=== PATIENT | female | born 1970 | race Hispanic/Latino ===

== ENCOUNTER 2019-04-11 19:25 | Emergency (ER) | payer OTHER ==
[~2019-04-11] VITALS: Ht 157.5 cm; Wt 89.8 kg
[2019-04-11] MEDS ORDERED: NIFEDIPINE 10 MG CAP PO STA (19:28)
--- OUTSIDE RECORDS SUMMARY | 2019-04-11 19:29 | XMS REPORT | CCD ---
Author Author Auto Generated Organization [facility] [place] Address Unknown Phone Unavailable Care Team Providers Care Hop Picker Name Role Phone Khloe Luu CP Allergies, Adverse Reactions, Alerts Substance Reaction Status codeine Active
--- OUTSIDE RECORDS SUMMARY | 2019-04-11 19:29 | XMS REPORT ---
Author Author Sommer Wheatley Organization [employer] Address Unknown Phone Unavailable Care Team Providers Care Command And Control Systems Integrator Name Role Phone Sommer Wheatley CP Unavailable Allergies No Known Allergies Problems Problem Type Condition Code Onset Dates Condition Status Problem Hypothyroidism E03.9 Active Problem Encounter for other screening for malignant neoplasm of breast Z12.39 Active Problem HTN (hypertension) I10 Active Problem Prediabetes R73.09 Active Problem BMI 37.0-37.9, adult Z68.37 Active Problem Fatty liver K76.0 Active Problem Paresthesia of both hands R20.2 Active Problem At high risk for breast cancer Z91.89 Active Problem Surgical menopause E89.40 Active Problem Type 2 diabetes mellitus without complication, without long-term current use of insulin E11.9 Active Assessment Prediabetes R73.09 Active Problem Obesity E66.9 Active Problem HLD (hyperlipidemia) E78.5 Active Medications Medication Code System Code Instructions Start Date End Date Status Dosage OneTouch Ultra Test [facility] 82037798784 - In Vitro use bid Active as directed Results No Known Results Summary Purpose eClinicalWorks Submission
--- OUTSIDE RECORDS SUMMARY | 2019-04-11 19:29 | XMS REPORT ---
Author Author Sommer Wheatley Organization [employer] Address Unknown Phone Unavailable Care Team Providers Care Advertising Campaign Manager Name Role Phone Sommer Wheatley CP Unavailable Allergies No Known Allergies Problems Problem Type Condition Code Onset Dates Condition Status Problem At high risk for breast cancer Z91.89 Active Problem Type 2 diabetes mellitus without complication, without long-term current use of insulin E11.9 Active Problem Paresthesia of both hands R20.2 Active Problem Tension headache G44.209 Active Problem Mixed hyperlipidemia E78.2 Active Problem Sciatica of right side M54.31 Active Problem BMI 37.0-37.9, adult Z68.37 Active Problem Surgical menopause E89.40 Active Problem Fatty liver K76.0 Active Problem Prediabetes R73.09 Active Problem Hypothyroidism E03.9 Active Problem HTN (hypertension) I10 Active Problem HLD (hyperlipidemia) E78.5 Active Problem Obesity E66.9 Active Problem Encounter for other screening for malignant neoplasm of breast Z12.39 Active Medications Medication Code System Code Instructions Start Date End Date Status Dosage Coreg CR [facility] [id number] 20 mg orally Once a day Active 1 capsule Results No Known Results Summary Purpose eClinicalWorks Submission
--- OUTSIDE RECORDS SUMMARY | 2019-04-11 19:29 | XMS REPORT ---
Author Damian Chappell Organization [employer] Address Unknown Phone Unavailable Care Team Providers Care Boat Operator Name Role Phone Damian Ricci CP Unavailable Allergies No Known Allergies Problems Problem Type Condition Code Onset Dates Condition Status Problem Type 2 diabetes mellitus without complication, without long-term current use of insulin E11.9 Active Problem Plantar fasciitis M72.2 Active Medications No Known Medications Results No Known Results Summary Purpose eClinicalWorks Submission
--- OUTSIDE RECORDS SUMMARY | 2019-04-11 19:29 | XMS REPORT ---
Author Author Sommer Wheatley [facility] eClinical[employer] Address Unknown Phone Unavailable Care Team Providers Care Knitting Machine Tender Name Role Phone Sommer Wheatley CP Unavailable Allergies, Adverse Reactions, Alerts Substance Reaction Event Type Codeine Sulfate axiety Drug Allergy AMARA inhibitors cough Non Drug Allergy Problems Problem Type Condition Code Onset Dates Condition Status Assessment HTN (hypertension) I10 Active Problem Hypothyroidism E03.9 Active Problem Obesity E66.9 Active Problem Type 2 diabetes mellitus without complication, without long-term current use of insulin E11.9 Active Problem Paresthesia of both hands R20.2 Active Problem BMI 37.0-37.9, adult Z68.37 Active Problem HLD (hyperlipidemia) E78.5 Active Problem HTN (hypertension) I10 Active Problem At high risk for breast cancer Z91.89 Active Problem Encounter for other screening for malignant neoplasm of breast Z12.39 Active Assessment BMI 37.0-37.9, adult Z68.37 Active Assessment Obesity E66.9 Active Assessment HLD (hyperlipidemia) E78.5 Active Assessment Type 2 diabetes mellitus without complication, without long-term current use of insulin E11.9 Active Medications Medication Code System Code Instructions Start Date End Date Status Dosage Metformin HCl ND 02702224328 500 mg Orally once a day Active 1 tablet with meals Losartan Potassium ND 61906167676 25 MG Orally Once a day Jun 14, 2017 Inactive 1 tablet Aspir-81 ND 83463147159 81 MG Orally Once a day Active 1 tablet OneTouch Ultra Test ND 05889225547 - Active USE DIRECTED EVERY DAY Coreg CR ND 69903032753 20 MG Orally Once a day December 31, 2016 Active 1 capsule with food OneTouch Lancets ND 53258059909 SQ once a day DX: E11.9 November 26, 2016 Active as directed Atorvastatin Calcium ND 56915589358 20 MG Orally Once a day Active 1 tablet Fish Oil ND 30591824187 500 mg Orally ance a day Active 1 capsule Metamucil Fiber Singles NDC 0 58.6 % Orally Three times a day Active 1 packet with 8 ounces of liquid as needed [employer] Ultra System ND 75368489080 w/Device in vitro use qd dx: E11.December 01, 2016 Active as directed Caltrate 600+D ND 05543540296 600-400 MG-UNIT Orally Once a day Active 1 tablet with food OneTouch Test NDC 0 In Vitro once a day DX: E11.November 26, 2016 Active as directed Vital Signs Date/Time: Jun 29, 2017 BMI 37.31 Index Weight 204 lbs Height 62 in Cardiac Monitoring Heart Rate 76 /min Blood Pressure Diastolic 76 mm Hg Blood Pressure Systolic 120 mm Hg Results No Known Results Summary Purpose eClinicalWorks Submission
--- OUTSIDE RECORDS SUMMARY | 2019-04-11 19:29 | XMS REPORT | CCD ---
Author Author Auto Generated Organization [facility] - [place] Address Unknown Phone Unavailable Care Team Providers Care Fisher Name Role Phone Khloe Luu CP Allergies, Adverse Reactions, Alerts Substance Reaction Status codeine Active
--- OUTSIDE RECORDS SUMMARY | 2019-04-11 19:29 | XMS REPORT ---
Author Author Sommer Wheatley [facility] eClinicalWorks Address Unknown Phone Unavailable Care Team Providers Care Anthropology Lecturer Name Role Phone Sommer Wheatley CP Unavailable [...] current use of insulin E11.9 Active Assessment Surgical menopause E89.40 Active Assessment Fatty liver K76.0 Active Assessment Hypothyroidism E03.9 Active Assessment Prediabetes R73.09 Active Assessment HTN (hypertension) I10 Active Problem Obesity E66.9 Active Assessment HLD (hyperlipidemia) E78.5 Active Problem HLD (hyperlipidemia) E78.5 Active Medications Medication Code System Code Instructions Start Date End Date Status Dosage Metformin HCl ND 74363279274 500 mg Orally once a day Active 1 tablet with meals Coreg CR [facility] 17533327856 20 MG Orally Once a day December 31, 2016 Active 1 capsule with food Caltrate 600+D [facility] 54181269877 600-400 MG-UNIT Orally Once a day Active 1 tablet with food Aspir-81 ND 23923934833 81 MG Orally Once a day Active 1 tablet OneTouch Ultra Test [facility] 81077305805 - Active USE DIRECTED EVERY DAY OneTouch Ultra System [facility] 59159353397 w/Device in vitro use qd dx: E11December 01, 2016 Active as directed OneTouch Lancets [facility] 67732864518 SQ once a day DX: E11November 26, 2016 Active as directed OneTouch Test NDC 0 In Vitro once a day DX: E11.9 November 26, 2016 Active as directed Centrum Adults ND 28282698888 - Orally Active not defined Atorvastatin Calcium ND 48645046844 20 MG Orally Once a day Active 1 tablet Vital Signs Date/Time: December 15, 2017 BMI 35.77 Index Weight 195.6 lbs Height 62 in Temperature 98 F Cardiac Monitoring Heart Rate 73 /min Blood Pressure Diastolic 78 mm Hg Blood Pressure Systolic 124 mm Hg Results Name Result Date Reference Range Unit Abnormality Flag BONE DENSITY Summary Purpose eClinicalWorks Submission
--- OUTSIDE RECORDS SUMMARY | 2019-04-11 19:29 | XMS REPORT ---
Author Author Sommer Wheatley Organization [employer]Clinical[employer] Address Unknown Phone Unavailable Care Team Providers Care Receptionist Doctor'S Office Name Role Phone Sommer Wheatley CP Unavailable Allergies No Known Allergies Problems Problem Type Condition Code Onset Dates Condition Status Problem Obesity E66.9 Active Problem HTN (hypertension) I10 Active Problem Hypothyroidism E03.9 Active Problem BMI 37.0-37.9, adult Z68.37 Active Problem Type 2 diabetes mellitus without complication, without long-term current use of insulin E11.9 Active Problem Prediabetes R73.09 Active Problem Encounter for other screening for malignant neoplasm of breast Z12.39 Active Problem HLD (hyperlipidemia) E78.5 Active Problem Paresthesia of both hands R20.2 Active Problem At high risk for breast cancer Z91.89 Active Medications Medication Code System Code Instructions Start Date End Date Status Dosage Cipro [facility] 57998386281 250 MG Orally every 12 hrs Sep 27, 2017 Oct 07, 2017 Active 1 tablet Results No Known Results Summary Purpose eClinicalWorks Submission
--- OUTSIDE RECORDS SUMMARY | 2019-04-11 19:29 | XMS REPORT ---
Author Author Darline Gonzales Organization [employer]ClinicalWorks Address Unknown Phone Unavailable Care Team Providers Care Farm Equipment Engine Mechanic Name Role Phone Darline Gonzales CP Unavailable Allergies, Adverse Reactions, Alerts Substance Reaction Event Type Codeine Sulfate axiety Drug Allergy Problems Problem Type Condition Code Onset Dates Condition Status Assessment HTN (hypertension) I10 Active Problem Obesity E66.9 Active Assessment Hyperpigmented skin lesion L81.9 Active Assessment Cough R05 Active Problem Paresthesia of both hands R20.2 Active Problem At high risk for breast cancer Z91.89 Active Problem Type 2 diabetes mellitus without complication, without long-term current use of insulin E11.9 Active Problem HTN (hypertension) I10 Active Problem Hypothyroidism E03.9 Active Problem Encounter for other screening for malignant neoplasm of breast Z12.39 Active Problem HLD (hyperlipidemia) E78.5 Active Medications Medication Code System Code Instructions Start Date End Date Status Dosage OneTouch Ultra System [facility] 17079398951 w/Device in vitro use qd dx: E11.December 01, 2016 Active as directed Coreg CR ND 76012292317 20 MG Orally Once a day December 31, 2016 Active 1 capsule with food Metamucil Fiber Singles NDC 0 58.6 % Orally Three times a day Active 1 packet with 8 ounces of liquid as needed Metformin HCl ND 95734741788 500 MG Orally once a day Active 1 tablet with meals Atorvastatin Calcium ND 33989047311 20 MG Orally Once a day Active 1 tablet Lisinopril ND 07961148039 5 MG Orally Once a day December 31, 2016 Active 1 tablet OneTouch Lancets ND 25875695312 SQ once a day DX: E11.9 November 26, 2016 Active as directed Caltrate 600+D ND 70046984652 600-400 MG-UNIT Orally Once a day Active 1 tablet with food Aspir-81 ND 69196776150 81 MG Orally Once a day Active 1 tablet OneTouch Ultra Test ND 09712052281 - Active USE DIRECTED EVERY DAY Fish Oil ND 48499916808 500 mg Orally ance a day Active 1 capsule OneTouch Test NDC 0 In Vitro once a day DX: E11.9 November 26, 2016 Active as directed Vital Signs Date/Time: May 31, 2017 BMI 36.76 Index Weight 201 lbs Height 62 in Cardiac Monitoring Heart Rate 83 /min Blood Pressure Diastolic 70 mm Hg Blood Pressure Systolic 120 mm Hg Results No Known Results Summary Purpose eClinicalWorks Submission
--- OUTSIDE RECORDS SUMMARY | 2019-04-11 19:29 | XMS REPORT | CCD ---
Author Author Auto Generated Organization [facility] Address Unknown Phone Unavailable Care Team Providers Care Grinding And Spraying Supervisor Name Role Phone Khloe Luu RP Allergies, Adverse Reactions, Alerts Substance Reaction Status codeine Active
--- OUTSIDE RECORDS SUMMARY | 2019-04-11 19:29 | XMS REPORT ---
Author Author Sommer Wheatley [facility] eClinicalWorks Address Unknown Phone Unavailable Care Team Providers Care Newspaper Managing Editor Name Role Phone Sommer Wheatley CP Unavailable Allergies, Adverse Reactions, Alerts Substance Reaction Event Type Codeine Sulfate axiety Drug Allergy AMARA inhibitors cough Non Drug Allergy Problems Problem Type Condition Code Onset Dates Condition Status Problem Encounter for other screening for malignant neoplasm of breast Z12.39 Active Problem Paresthesia of both hands R20.2 Active Problem At high risk for breast cancer Z91.89 Active Problem Mixed hyperlipidemia E78.2 Active Problem Fatty liver K76.0 Active Problem Sciatica of right side M54.31 Active Problem Surgical menopause E89.40 Active Problem Type 2 diabetes mellitus without complication, without long-term current use of insulin E11.9 Active Problem Prediabetes R73.09 Active Problem BMI 37.0-37.9, adult Z68.37 Active Problem Obesity E66.9 Active Problem Hypothyroidism E03.9 Active Assessment Upper respiratory tract infection, unspecified type J06.9 Active Problem HTN (hypertension) I10 Active Problem HLD (hyperlipidemia) E78.5 Active Medications Medication Code System Code Instructions Start Date End Date Status Dosage Centrum Adults [facility] 09018643247 - Orally Active not defined Atorvastatin Calcium ND 03815765628 20 mg by mouth daily Active 1 tablet OneTouch Lancets ND 82404226198 SQ once a day DX: E11November 26, 2016 Active as directed OneTouch Test NDC 0 In Vitro once a day DX: E11November 26, 2016 Active as directed Bromfed DM ND 55774502985 30-2-10 MG/5ML Orally every 4 hrs prn Sep 06, 2018 Oct 06, 2018 Active 10 ml OneTouch Ultra System ND 70650335907 w/Device in vitro use qd dx: E11.December 01, 2016 Active as directed Aspir-81 ND 31688420688 81 MG Orally Once a day Active 1 tablet Coreg CR ND 15952643473 20 MG Active TAKE ONE CAPSULE BY MOUTH ONCE A DAY WITH FOOD Metformin HCl [facility] 86008783134 500 mg Orally once a day Active 1 tablet Zithromax Z-Zechariah [facility] 12901433449 250 MG Orally Once a day Sep 06, 2018 Sep 11, 2018 Active 2 tablets on the first day, then 1 tablet daily for 4 days Caltrate 600+D [facility] 68267314234 600-400 MG-UNIT Orally Once a day Active 1 tablet with food [employer] Ultra Test [facility] 32898308553 - In Vitro use bid Active as directed Vital Signs Date/Time: Sep 06, 2018 BMI 35.66 Index Weight 195 lbs Height 62 in Temperature 98.1 F Cardiac Monitoring Heart Rate 84 /min Blood Pressure Diastolic 84 mm Hg Blood Pressure Systolic 130 mm Hg Results No Known Results Summary Purpose eClinicalWorks Submission
--- OUTSIDE RECORDS SUMMARY | 2019-04-11 19:29 | XMS REPORT ---
Author Author Sommer Wheatley [facility] eClinicalWorks Address Unknown Phone Unavailable Care Team Providers Care Valve Steamer Name Role Phone Sommer Wheatley CP Unavailable Allergies, Adverse Reactions, Alerts Substance Reaction Event Type Codeine Sulfate axiety Drug Allergy AMARA inhibitors cough Non Drug Allergy Problems Problem Type Condition Code Onset Dates Condition Status Problem Obesity E66.9 Active Problem HTN (hypertension) I10 Active Problem Hypothyroidism E03.9 Active Assessment Right upper quadrant abdominal pain R10.11 Active Problem BMI 37.0-37.9, adult Z68.37 Active [...] Start Date End Date Status Dosage OneTouch Test NDC 0 In Vitro once a day DX: November 26, 2016 Active as directed OneTouch Lancets ND 62987304845 SQ once a day DX: November 26, 2016 Active as directed OneTouch Ultra Test [facility] 18061650989 - Active USE DIRECTED EVERY DAY Coreg CR ND 72938891193 20 MG Orally Once a day December 31, 2016 Active 1 capsule with food OneTouch Ultra System [facility] 25588097042 w/Device in vitro use qd dx: December 01, 2016 Active as directed Atorvastatin Calcium ND 83749800396 20 MG Orally Once a day Active 1 tablet Tamiflu ND 62501800899 75 mg Orally daily Aug 19, 2017 Active 1 capsule Metformin HCl ND 74945726379 500 mg Orally once a day Active 1 tablet with meals Caltrate 600+D ND 12458522700 600-400 MG-UNIT Orally Once a day Active 1 tablet with food Triamcinolone Acetonide [facility] 37348789948 0.1 % External Active APPLY TO AFFECTED AREA TWICE A DAY FOR 7 DAYS Vital Signs Date/Time: Sep 21, 2017 BMI 35.84 Index Weight 196 lbs Height 62 in Cardiac Monitoring Heart Rate 80 /min Blood Pressure Diastolic 80 mm Hg Blood Pressure Systolic 120 mm Hg Results No Known Results Summary Purpose eClinicalWorks Submission
--- OUTSIDE RECORDS SUMMARY | 2019-04-11 19:29 | XMS REPORT ---
Author Darline Goldman [facility] eClinicalWorks Address Unknown Phone Unavailable Care Team Providers Care Education Teacher Name Role Phone Darline Gonzales CP Unavailable [...] Active Problem BMI 37.0-37.9, adult Z68.37 Active Assessment Acute right ankle pain M25.571 Active Assessment Sciatica of right side M54.31 Active Problem Obesity E66.9 Active Problem Hypothyroidism E03.9 Active Assessment HTN (hypertension) I10 Active Problem HTN (hypertension) I10 Active Problem HLD (hyperlipidemia) E78.5 Active Medications Medication Code System Code Instructions Start Date End Date Status Dosage OneTouch Ultra Test ND 35353573929 - In Vitro use bid Active as directed Aspir-81 ND 55116642223 81 MG Orally Once a day Active 1 tablet OneTouch Test NDC 0 In Vitro once a day DX: E11November 26, 2016 Active as directed OneTouch Lancets ND 13060693162 SQ once a day DX: November 26, 2016 Active as directed Caltrate 600+D ND 73609163740 600-400 MG-UNIT Orally Once a day Active 1 tablet with food Atorvastatin Calcium ND 73816812223 20 mg by mouth daily Active 1 tablet Naproxen ND 45115330098 375 MG Orally every 12 hrs PRN Aug 03, 2018 Aug 10, 2018 Active 1 tablet with food or milk as needed Coreg CR NDC 86710283429 20 MG Active TAKE ONE CAPSULE BY MOUTH ONCE A DAY WITH FOOD Lisinopril [facility] 65211164269 5 MG Orally Once a day Active 1 tablet Metformin HCl [facility] 86523444549 500 mg Orally once a day Active 1 tablet Centrum Adults [facility] 71490259858 - Orally Active not defined [employer] Ultra System [facility] 84773115989 w/Device in vitro use qd dx: E11.9 December 01, 2016 Active as directed Vital Signs Date/Time: Aug 03, 2018 BMI 35.66 Index Weight 195 lbs Height 62 in Cardiac Monitoring Heart Rate 69 /min Blood Pressure Diastolic 92 mm Hg Blood Pressure Systolic 130 mm Hg Results No Known Results Summary Purpose eClinicalWorks Submission
--- OUTSIDE RECORDS SUMMARY | 2019-04-11 19:29 | XMS REPORT ---
Author Author Sommer Wheatley [facility] eClinicalWorks Address Unknown Phone Unavailable Care Team Providers Care Cash Person Name Role Phone Sommer Wheatley CP Unavailable Allergies, Adverse Reactions, Alerts Substance Reaction Event Type Codeine Sulfate axiety Drug Allergy Problems Problem Type Condition Code Onset Dates Condition Status Assessment Encounter for screening mammogram for malignant neoplasm of breast Z12.31 Active Problem Obesity E66.9 Active Assessment Encntr for general adult medical exam w/o abnormal findings Z00.00 Active Problem Paresthesia of both hands R20.2 Active Problem HTN (hypertension) I10 Active Problem Type 2 diabetes mellitus without complication, without long-term current use of insulin E11.9 Active Problem Encounter for other screening for malignant neoplasm of breast Z12.39 Active Problem At high risk for breast cancer Z91.89 Active Problem Hypothyroidism E03.9 Active Problem HLD (hyperlipidemia) E78.5 Active Assessment HTN (hypertension) I10 Active Assessment Hypothyroidism E03.9 Active Assessment Upper respiratory tract infection, unspecified type J06.9 Active Assessment HLD (hyperlipidemia) E78.5 Active Assessment Type 2 diabetes mellitus without complication, without long-term current use of insulin E11.9 Active Assessment Encounter for screening colonoscopy Z12.11 Active Medications Medication Code System Code Instructions Start Date End Date Status Dosage Caltrate 600+D [facility] [address]-09 600-400 MG-UNIT Orally Once a day Active 1 tablet with food Aspir-81 [facility] [address]-55 81 MG Orally Once a day Active 1 tablet Atorvastatin Calcium [facility] [address]-75 20 MG Orally Once a day Active 1 tablet OneTouch Test NDC 0 In Vitro once a day DX: November 26, 2016 Active as directed Metamucil Fiber Singles NDC 0 58.6 % Orally Three times a day Active 1 packet with 8 ounces of liquid as needed OneTouch Lancets [facility] [address]-12 SQ once a day DX: November 26, 2016 Active as directed OneTouch Ultra System [facility] [address]-46 w/Device in vitro use qd dx: E11.9 December 01, 2016 Active as directed Fish Oil [facility] [address]-08 500 mg Orally ance a day Active 1 capsule Coreg CR [facility] [address]-69 20 MG Orally Once a day December 31, 2016 Active 1 capsule with food Bromfed DM [facility] [address]-26 30-2-10 MG/5ML Orally every 4 hrs prn March 11, 2017 May 10, 2017 Active 10 ml Metformin HCl [facility] [address]-22 500 MG Orally once a day November 26, 2016 Active 1 tablet with meals Zithromax Z-Zechariah [facility] [address]-57 250 MG Orally Once a day March 11, 2017 March 16, 2017 Active 2 tablets on the first day, then 1 tablet daily for 4 days Lisinopril [facility] [address]-70 5 MG Orally Once a day December 31, 2016 Active 1 tablet Vital Signs Date/Time: March 11, 2017 BMI 37.13 Index Weight 203 lbs Height 62 in Cardiac Monitoring Heart Rate 85 /min Blood Pressure Diastolic 80 mm Hg Blood Pressure Systolic 112 mm Hg Results No Known Results Summary Purpose eClinicalWorks Submission
--- OUTSIDE RECORDS SUMMARY | 2019-04-11 19:29 | XMS REPORT | Continuity of Care Document ---
Author Author [employer] Organization [employer] Address Unknown Phone Unavailable Care Team Providers Care Call Center Trainer Name Role Phone [employer] Unavailable Unavailable Problems Problem Status Onset Date Classification Date Reported Comments Source 915.13 Active 09/08/2012 [facility] ROUTINE SCREENING Active 07/04/2012 [facility] Plantar fasciitis Active Problem 09/21/2017 [facility] HTN Active Problem 04/08/2019 [facility] Obesity Active Problem 04/08/2019 [facility] Hyperpigmented skin lesion Active Diagnosis 06/01/2017 [facility] Cough Active Diagnosis 06/16/2017 [facility] Paresthesia of both hands Active Problem 04/08/2019 [facility] At high risk for breast cancer Active Problem 04/08/2019 [facility] Type 2 diabetes mellitus without complication, without long-term current use of insulin Active Problem 04/08/2019 [facility] Hypothyroidism Active Problem 04/08/2019 [facility] HLD Active Problem 04/08/2019 [facility] Right upper quadrant abdominal pain Active Diagnosis 09/25/2017 [facility] BMI 37.0-37.9, adult Active Problem 04/08/2019 [facility] Prediabetes Active Problem 04/08/2019 [facility] Adverse effect of avwhgklofpy-vugglkvtlt-kjcdmf inhibitors, initial encounter Active Diagnosis 06/16/2017 [facility] Encounter for screening mammogram for malignant neoplasm of breast Active Diagnosis 05/09/2018 [facility] Encntr for general adult medical exam w/o abnormal findings Active Diagnosis 05/09/2018 [facility] Upper respiratory tract infection, unspecified type Active Diagnosis 09/14/2018 [facility] Encounter for screening colonoscopy Active Diagnosis 03/15/2017 [facility] Fatty liver Active Problem 04/08/2019 [facility] Surgical menopause Active Problem 04/08/2019 [facility] Pain of right heel Active Diagnosis 09/03/2017 [facility] Flu-like symptoms Active Diagnosis 09/03/2017 [facility] RUQ pain Active Diagnosis 10/07/2017 [facility] Acute cystitis without hematuria Active Diagnosis 10/07/2017 [facility] Mixed hyperlipidemia Active Problem 04/08/2019 [facility] Prediabetes Active Diagnosis 05/25/2018 [facility] Sciatica of right side Active Problem 04/08/2019 [facility] Acute right ankle pain Active Diagnosis 08/05/2018 [facility] Cervical paraspinal muscle spasm Active Diagnosis 06/08/2018 [facility] Wheezing Active Diagnosis 06/08/2018 [facility] Tension headache Active Problem 04/08/2019 [facility] Medications Medication Details Route Status Patient Instructions Ordering Provider Order Date Source Bromfed DM 10 ml Orally Active 30-2-10 MG/5ML Orally every 4 hrs prn [facility] 09/06/2018 [facility] Zithromax Z-Zechariah 2 tablets on the first day, then 1 tablet daily for 4 days Orally Active 250 MG Orally Once a day [facility] 09/06/2018 [facility] Naproxen 1 tablet with food or milk as needed Orally Active 375 MG Orally every 12 hrs PRN [facility] 08/03/2018 [facility] Meloxicam -2 tablets Orally Active 7.5 MG Orally Once a day [facility] 06/02/2018 [facility] Flexeril 1 tablet as needed Orally Active 10 mg Orally three times a day (tid) as needed (prn) [facility] 06/02/2018 [facility] Cipro 1 tablet Orally Active 250 MG Orally every 12 hrs [facility] 09/28/2017 [facility] Cipro 1 tablet Orally Active 250 MG Orally every 12 hrs [facility] 09/27/2017 [facility] Tamiflu 1 capsule Orally Active 75 mg Orally daily [facility] 08/19/2017 [facility] Losartan Potassium 1 tablet Orally Active 25 MG Orally Once a day [facility] 06/14/2017 [facility] Bromfed DM 10 ml Orally Active 30-2-10 MG/5ML Orally every 4 hrs prn [facility] 03/11/2017 [facility] Zithromax Z-Zechariah 2 tablets on the first day, then 1 tablet daily for 4 days Orally Active 250 MG Orally Once a day [facility] 03/11/2017 [facility] Coreg CR 1 capsule with food Orally Active 20 MG Orally Once a day [facility] 12/31/2016 [facility] Lisinopril 1 tablet Orally Active 5 MG Orally Once a day [facility] 12/31/2016 [facility] Coreg CR 1 capsule with food Orally Active 20 MG Orally Once a day [facility] 12/31/2016 [facility] Lisinopril 1 tablet Orally Active 5 MG Orally Once a day [facility] 12/31/2016 [facility] OneTouch Ultra System as directed in vitro Active w/Device in vitro use qd dx: E11.9 [facility] 12/01/2016 [facility] OneTouch Ultra System as directed in vitro Active w/Device in vitro use qd dx: E11.9 [facility] 12/01/2016 [facility] OneTouch Lancets as directed SQ Active SQ once a day DX: E11.9 [facility] 11/26/2016 [facility] OneTouch Test as directed In Vitro Active In Vitro once a day DX: E11.9 [facility] 11/26/2016 [facility] OneTouch Lancets as directed SQ Active SQ once a day DX: E11.9 [facility] 11/26/2016 [facility] Metformin HCl 1 tablet with meals Orally Active 500 MG Orally once a day [facility] 11/26/2016 [facility] One Touch/One Touch II Starter as directed In Vitro Active In Vitro as directed DX: E11.9 [facility] 11/26/2016 [facility] Coreg CR 1 capsule with food Orally Active 40 MG Orally Once a day [facility] 11/26/2016 [facility] Metamucil Fiber Singles 1 packet with 8 ounces of liquid as needed Orally Active 58.6 % Orally Three times a day [facility] Metformin HCl 1 tablet with meals Orally Active 500 MG Orally once a day [facility] Atorvastatin Calcium 1 tablet Orally Active 20 MG Orally Once a day Reji Espinosa [facility] Caltrate 600+D 1 tablet with food Orally Active 600-400 MG-UNIT Orally Once a day Reji Espinosa [facility] Aspir-81 1 tablet Orally Active 81 MG Orally Once a day Reji Espinosa [facility] OneTouch Ultra Test as directed In Vitro Active - In Vitro use bid Reji Espinosa [facility] Fish Oil 1 capsule Orally Active 500 mg Orally ance a day Reji Espinosa [facility] Metformin HCl 1 tablet Orally Active 500 mg Orally once a day Reji Espinosa [facility] Triamcinolone Acetonide APPLY TO AFFECTED AREA TWICE A DAY FOR 7 DAYS External Active 0.1 % External Reji Espinosa [facility] Caltrate 600+D 1 tablet with food Orally Active 600-400 MG-UNIT Orally Once a day Reji Espinosa [facility] Aspir-81 1 tablet Orally Active 81 MG Orally Once a day Reji Espinosa [facility] Atorvastatin Calcium 1 tablet Orally Active 20 MG Orally Once a day Reji Espinosa [facility] Fish Oil 1 capsule Orally Active 500 mg Orally ance a day Reji Espinosa [facility] Centrum Adults not defined Orally Active - Orally Reji Espinosa [facility] Invokana 1 tablet Orally No Longer Active 300 MG Orally Once a day Reji Espinosa [facility] Fiber not defined Orally Active Orally Juan [facility] Coreg CR 1 capsule with food Orally Active 20 MG Orally Once a day [facility] Lisinopril 1 tablet Orally Active 5 MG Orally Once a day [facility] Atorvastatin Calcium 1 tablet by mouth Active 20 mg by mouth daily Reji Espinosa [facility] Coreg CR 1 capsule orally Active 20 mg orally Once a day [facility] Allergies, Adverse Reactions, Alerts Substance Category Reaction Severity Reaction type Status Date Reported Comments Source Codeine Sulfate Adverse Reaction axiety Adverse Reaction Active 11/03/2018 [facility] AMARA inhibitors Adverse Reaction cough Adverse Reaction Active 11/03/2018 [facility] codeine drug allergy Allergy Active [facility] Immunizations No Data Provided for This Section Results No Data Provided for This Section Pathology Reports No Data Provided for This Section Diagnostic Reports No Data Provided for This Section Consultation Notes No Data Provided for This Section Discharge Summaries No Data Provided for This Section History and Physicals No Data Provided for This Section Vital Signs Vital Sign Value Date Comments Source Weight 193 11/03/2018 [facility] Height 62 11/03/2018 [facility] Heart Rate 65 11/03/2018 [facility] Diastolic (mm Hg) 66 11/03/2018 [facility] Systolic (mm Hg) 120 11/03/2018 [facility] Weight 195 09/06/2018 [facility] Height 62 09/06/2018 [facility] Temperature Oral (F) 98.1 F 09/06/2018 [facility] Heart Rate 84 09/06/2018 [facility] Diastolic (mm Hg) 84 09/06/2018 [facility] Systolic (mm Hg) 130 09/06/2018 [facility] Weight 195 08/03/2018 [facility] Height 62 08/03/2018 [facility] Heart Rate 69 08/03/2018 [facility] Diastolic (mm Hg) 92 08/03/2018 [facility] Systolic (mm Hg) 130 08/03/2018 [facility] Weight 197 06/02/2018 [facility] Height 62 06/02/2018 [facility] Heart Rate 68 06/02/2018 [facility] Diastolic (mm Hg) 80 06/02/2018 [facility] Systolic (mm Hg) 124 06/02/2018 [facility] Weight 199 05/19/2018 [facility] Height 62 05/19/2018 [facility] Heart Rate 76 05/19/2018 [facility] Diastolic (mm Hg) 82 05/19/2018 [facility] Systolic (mm Hg) 144 05/19/2018 [facility] Weight 198 05/05/2018 [facility] Height 62 05/05/2018 [facility] Heart Rate 74 05/05/2018 [facility] Diastolic (mm Hg) 76 05/05/2018 [facility] Systolic (mm Hg) 130 05/05/2018 [facility] Weight 195.6 12/15/2017 [facility] Height 62 12/15/2017 [facility] Temperature Oral (F) 98 F 12/15/2017 [facility] Heart Rate 73 12/15/2017 [facility] Diastolic (mm Hg) 78 12/15/2017 [facility] Systolic (mm Hg) 124 12/15/2017 [facility] Weight 199 09/28/2017 [facility] Height 62 09/28/2017 [facility] Heart Rate 80 09/28/2017 [facility] Diastolic (mm Hg) 80 09/28/2017 [facility] Systolic (mm Hg) 140 09/28/2017 [facility] Weight 196 09/21/2017 [facility] Height 62 09/21/2017 [facility] Heart Rate 80 09/21/2017 [facility] Diastolic (mm Hg) 80 09/21/2017 [facility] Systolic (mm Hg) 120 09/21/2017 [facility] Weight 201 08/19/2017 [facility] Height 62 08/19/2017 [facility] Heart Rate 88 08/19/2017 [facility] Diastolic (mm Hg) 62 08/19/2017 [facility] Systolic (mm Hg) 122 08/19/2017 [facility] Weight 204 06/29/2017 [facility] Height 62 06/29/2017 [facility] Heart Rate 76 06/29/2017 [facility] Diastolic (mm Hg) 76 06/29/2017 [facility] Systolic (mm Hg) 120 06/29/2017 [facility] Weight 201 06/14/2017 [facility] Height 62 06/14/2017 [facility] Heart Rate 76 06/14/2017 [facility] Diastolic (mm Hg) 80 06/14/2017 [facility] Systolic (mm Hg) 130 06/14/2017 [facility] Weight 201 05/31/2017 [facility] Height 62 05/31/2017 [facility] Heart Rate 83 05/31/2017 [facility] Diastolic (mm Hg) 70 05/31/2017 [facility] Systolic (mm Hg) 120 05/31/2017 [facility] Weight 203 03/11/2017 [facility] Height 62 03/11/2017 [facility] Heart Rate 85 03/11/2017 [facility] Diastolic (mm Hg) 80 03/11/2017 [facility] Systolic (mm Hg) 112 03/11/2017 [facility] Weight 203 11/26/2016 [facility] Height 62 11/26/2016 [facility] Heart Rate 78 11/26/2016 [facility] Diastolic (mm Hg) 92 11/26/2016 [facility] Systolic (mm Hg) 138 11/26/2016 [facility] Weight 200 11/19/2016 [facility] Height 62 11/19/2016 [facility] Heart Rate 71 11/19/2016 [facility] Diastolic (mm Hg) 98 11/19/2016 [facility] Systolic (mm Hg) 162 11/19/2016 [facility] Weight 193 08/14/2016 [facility] Height 62 08/14/2016 [facility] Heart Rate 79 08/14/2016 [facility] Diastolic (mm Hg) 90 08/14/2016 [facility] Systolic (mm Hg) 150 08/14/2016 [facility] Weight 185 04/23/2016 [facility] Height 62 04/23/2016 [facility] Heart Rate 76 04/23/2016 [facility] Diastolic (mm Hg) 85 04/23/2016 [facility] Systolic (mm Hg) 119 04/23/2016 [facility] Weight 185 01/21/2016 [facility] Height 62 01/21/2016 [facility] Heart Rate 75 01/21/2016 [facility] Diastolic (mm Hg) 82 01/21/2016 [facility] Systolic (mm Hg) 110 01/21/2016 [facility] Encounters Location Location Details Encounter Type Encounter Number Reason For Visit Attending Provider ADM Date DC Date Status Source [facility] [id number] 793.80 BRADBRODY JEAN BAPTISTERUPERTO 09/19/2012 Active [facility] Lab results [id number] 01/21/2016 01/21/2016 [facility] Lab results [id number] 01/21/2016 01/21/2016 [facility] Lab results [id number] 01/21/2016 01/21/2016 [facility] 3 MONTH FOLLOW UP [id number] 04/23/2016 04/23/2016 [facility] 3 MONTH FOLLOW UP [id number] 04/23/2016 04/23/2016 [facility] 3 MONTH FOLLOW UP [id number] 08/14/2016 08/14/2016 [facility] [id number] ROUTINE SCREENING BRAD [place]RO[place] Cancel [facility] Procedures No Data Provided for This Section Assessment and Plan No Data Provided for This Section Plan of Care No Data Provided for This Section Social History Social History Date Source Social History ElementQualifiersDate Reported Ethnicity . Status , Is afghan your primary language? Yes Aug 14, 2016 children . 2 Aug 14, 2016 Tobacco Use: . Are you a: never smoker Aug 14, 2016 Marital Status: . Albino Cabrialez Aug 14, 2016 Do you drink alcohol? . Status: Yes, Type: Wine, How often? Socially Aug 14, 2016 Occupation: . Stay at home parent Aug 14, 2016 08/14/2016 [facility] Family History No Data Provided for This Section Advance Directives No Data Provided for This Section Functional Status No Data Provided for This Section
--- OUTSIDE RECORDS SUMMARY | 2019-04-11 19:29 | XMS REPORT ---
Author Author Sommer Wheatley [facility] [employer] Address Unknown Phone Unavailable Care Team Providers Care Traffic Ii Manager Name Role Phone Sommer Wheatley CP Unavailable Allergies, Adverse Reactions, Alerts Substance Reaction Event Type Codeine Sulfate axiety Drug Allergy AMARA inhibitors cough Non Drug Allergy Problems Problem Type Condition Code Onset Dates Condition Status Assessment Pain of right heel M79.671 Active Problem Hypothyroidism E03.9 Active Problem Obesity E66.9 Active Assessment Flu-like symptoms R68.89 Active Problem Type 2 diabetes mellitus without [...] Instructions Start Date End Date Status Dosage Atorvastatin Calcium ND 07368596514 20 MG Orally Once a day Active 1 tablet Tamiflu ND 46590886296 75 mg Orally daily Aug 19, 2017 Active 1 capsule Metformin HCl ND 10644090819 500 mg Orally once a day Active 1 tablet with meals MusicshakeTouch Ultra System [facility] 54466220737 w/Device in vitro use qd dx: December 01, 2016 Active as directed OneTouch Ultra Test ND 85095927146 - Active USE DIRECTED EVERY DAY OneTouch Lancets ND 94054544081 SQ once a day DX: November 26, 2016 Active as directed OneTouch Test NDC 0 In Vitro once a day DX: November 26, 2016 Active as directed Caltrate 600+D ND 37169417186 600-400 MG-UNIT Orally Once a day Active 1 tablet with food Coreg CR ND 28105955717 20 MG Orally Once a day December 31, 2016 Active 1 capsule with food Vital Signs Date/Time: Aug 19, 2017 BMI 36.76 Index Weight 201 lbs Height 62 in Cardiac Monitoring Heart Rate 88 /min Blood Pressure Diastolic 62 mm Hg Blood Pressure Systolic 122 mm Hg Results No Known Results Summary Purpose [employer] Submission
--- OUTSIDE RECORDS SUMMARY | 2019-04-11 19:29 | XMS REPORT ---
Author Author Sommer Wheatley [facility] [employer] Address Unknown Phone Unavailable Care Team Providers Care Field Superintendent Name Role Phone Sommer Wheatley CP Unavailable Allergies, Adverse Reactions, Alerts Substance Reaction Event Type Codeine Sulfate axiety Drug Allergy AMARA inhibitors cough Non Drug Allergy Problems Problem Type Condition Code Onset Dates Condition Status Problem HLD (hyperlipidemia) E78.5 Active Problem HTN (hypertension) I10 Active Problem Hypothyroidism E03.9 Active Problem Prediabetes R73.09 Active Problem BMI 37.0-37.9, adult Z68.37 Active Problem Fatty liver K76.0 Active Problem At high risk for breast cancer Z91.89 Active Problem Encounter for other screening for malignant neoplasm of breast Z12.39 Active Problem Type 2 diabetes mellitus without complication, without long-term current use of insulin E11.9 Active Problem Paresthesia of both hands R20.2 Active Assessment RUQ pain R10.11 Active Assessment Type 2 diabetes mellitus without complication, without long-term current use of insulin E11.9 Active Assessment Hypothyroidism E03.9 Active Assessment Acute cystitis without hematuria N30.00 Active Assessment HLD (hyperlipidemia) E78.5 Active Assessment Fatty liver K76.0 Active Problem Obesity E66.9 Active Medications Medication Code System Code Instructions Start Date End Date Status Dosage OneTouch Ultra Test [facility] 49763209810 - Active USE DIRECTED EVERY DAY OneTouch Ultra System [facility] 29298301133 w/Device in vitro use qd dx: E11.December 01, 2016 Active as directed Cipro ND 76891885297 250 MG Orally every 12 hrs Sep 28, 2017 Oct 08, 2017 Active 1 tablet OneTouch Lancets ND 83140250546 SQ once a day DX: E11.November 26, 2016 Active as directed Metformin HCl ND 79561104412 500 mg Orally once a day Active 1 tablet with meals Coreg CR ND 45907271067 20 MG Orally Once a day December 31, 2016 Active 1 capsule with food Cipro ND 12300847433 250 MG Orally every 12 hrs Sep 27, 2017 Oct 07, 2017 Active 1 tablet OneTouch Test NDC 0 In Vitro once a day DX: E11.9 November 26, 2016 Active as directed Caltrate 600+D ND 58147254199 600-400 MG-UNIT Orally Once a day Active 1 tablet with food Atorvastatin Calcium ND 29994861477 20 MG Orally Once a day Active 1 tablet Triamcinolone Acetonide [facility] 67732618181 0.1 % External Active APPLY TO AFFECTED AREA TWICE A DAY FOR 7 DAYS Vital Signs Date/Time: Sep 28, 2017 BMI 36.39 Index Weight 199 lbs Height 62 in Cardiac Monitoring Heart Rate 80 /min Blood Pressure Diastolic 80 mm Hg Blood Pressure Systolic 140 mm Hg Results No Known Results Summary Purpose [employer] Submission
--- OUTSIDE RECORDS SUMMARY | 2019-04-11 19:29 | XMS REPORT ---
Author Author Sommer Wheatley Organization eClinicalWorks Address Unknown Phone Unavailable Care Team Providers Care Student Services Dean Name Role Phone Sommer Wheatley CP Unavailable [...] Start Date End Date Status Dosage OneTouch Lancets [facility] 71126797668 SQ once a day DX: November 26, 2016 Active as directed Caltrate 600+D ND 04745874093 600-400 MG-UNIT Orally Once a day Active 1 tablet with food OneTouch Ultra System [facility] 98520385901 w/Device in vitro use qd dx: December 01, 2016 Active as directed OneTouch Test NDC 0 In Vitro once a day DX: November 26, 2016 Active as directed Tamiflu ND 56413349805 75 mg Orally daily Aug 19, 2017 Active 1 capsule Metformin HCl ND 91361350399 500 mg Orally once a day Active 1 tablet with meals Coreg CR ND 11373745206 20 MG Orally Once a day December 31, 2016 Active 1 capsule with food OneTouch Ultra Test [facility] 38661255655 - Active USE DIRECTED EVERY DAY Atorvastatin Calcium ND 95659328000 20 MG Orally Once a day Active 1 tablet Results No Known Results Summary Purpose eClinicalWorks Submission
--- OUTSIDE RECORDS SUMMARY | 2019-04-11 19:29 | XMS REPORT ---
Author Author Darline Gonzales [facility] eClinicalWorks Address Unknown Phone Unavailable Care Team Providers Care Russian Language Professor Name Role Phone Darline Gonzales CP Unavailable Allergies, Adverse Reactions, Alerts Substance Reaction Event Type Codeine Sulfate axiety Drug Allergy AMARA inhibitors cough Non Drug Allergy Problems Problem Type Condition Code Onset Dates Condition Status Assessment Type 2 diabetes mellitus without complication, without long-term current use of insulin E11.9 Active Problem Obesity E66.9 Active Assessment HTN (hypertension) I10 Active Assessment Cough R05 Active Assessment Adverse effect of hziluwqgzqw-qltaaimlqu-uygejz inhibitors, initial encounter T46.4X5A Active Problem Paresthesia of both hands R20.2 [...] Date End Date Status Dosage OneTouch Lancets ND 12123479722 SQ once a day DX: November 26, 2016 Active as directed Atorvastatin Calcium ND 63113463580 20 MG Orally Once a day Active 1 tablet Metformin HCl ND 65347843280 500 mg Orally once a day Active 1 tablet with meals Metamucil Fiber Singles NDC 0 58.6 % Orally Three times a day Active 1 packet with 8 ounces of liquid as needed OneTouch Test NDC 0 In Vitro once a day DX: November 26, 2016 Active as directed Coreg CR ND 28284428754 20 MG Orally Once a day December 31, 2016 Active 1 capsule with food Fish Oil ND 28402922379 500 mg Orally ance a day Active 1 capsule Aspir-81 ND 73449350981 81 MG Orally Once a day Active 1 tablet OneTouch Ultra Test [facility] 81335898492 - Active USE DIRECTED EVERY DAY Lisinopril ND 04166409084 5 MG Orally Once a day December 31, 2016 Inactive 1 tablet Caltrate 600+D ND 99333342351 600-400 MG-UNIT Orally Once a day Active 1 tablet with food IMT System [facility] 53753925596 w/Device in vitro use qd dx: E11.9 December 01, 2016 Active as directed Losartan Potassium ND 02894402104 25 MG Orally Once a day Jun 14, 2017 Active 1 tablet Vital Signs Date/Time: Jun 14, 2017 BMI 36.76 Index Weight 201 lbs Height 62 in Cardiac Monitoring Heart Rate 76 /min Blood Pressure Diastolic 80 mm Hg Blood Pressure Systolic 130 mm Hg Results Name Result Date Reference Range Unit Abnormality Flag MONOFILAMENT FOOT EXAMINATION PERFORMED Summary Purpose eClinicalWorks Submission
--- OUTSIDE RECORDS SUMMARY | 2019-04-11 19:30 | XMS REPORT ---
Author Author Sommer Wheatley [facility] eClinicalWorks Address Unknown Phone Unavailable Care Team Providers Care Marble Polisher Hand Name Role Phone Sommer Wheatley CP Unavailable Allergies, Adverse Reactions, Alerts Substance Reaction Event Type Codeine Sulfate axiety Drug Allergy Encounters Encounter Location Date Lab results [facility] January 21, 2016 3 MONTH FOLLOW UP [facility] Apr 23, 2016 3 MONTH FOLLOW UP [facility] Aug 14, 2016 Problems Problem Type Condition ICD-9 Code Onset Dates Condition Status Assessment Hypothyroidism E03.9 Active Problem Obesity E66.9 Active Assessment HLD (hyperlipidemia) E78.5 Active Problem HTN (hypertension) I10 Active Problem Prediabetes R73.09 Active Problem Paresthesia of both hands R20.2 Active Problem Encounter for other screening for malignant neoplasm of breast Z12.39 Active Problem At high risk for breast cancer Z91.89 Active Problem Hypothyroidism E03.9 Active Problem HLD (hyperlipidemia) E78.5 Active Assessment Paresthesia of both hands R20.2 Active Assessment Prediabetes R73.09 Active Assessment HTN (hypertension) I10 Active Medications Medication Code System Code Instructions Start Date End Date Status Dosage Aspir-81 [facility] [address]-22 81 MG Orally Once a day Active 1 tablet [facility] [address]-43 500 mg Orally ance a day Active 1 capsule Atorvastatin Calcium [facility] [address]-78 20 MG Orally Once a day Active 1 tablet Fiber [facility] [address]-46 Orally Active Unknown Coreg CR [facility] [address]-27 20 MG Orally Once a day Active 1 capsule with food Caltrate 600+D [facility] [address]-36 600-400 MG-UNIT Orally Once a day Active 1 tablet with food Social History Social History Element Qualifiers Date Reported Ethnicity . Status , Is finnish your primary language? Yes Aug 14, 2016 children . 2 Aug 14, 2016 Tobacco Use: . Are you a: never smoker Aug 14, 2016 Marital Status: . [place] Aug 14, 2016 Do you drink alcohol? . Status: Yes, Type: Wine, How often? 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
--- OUTSIDE RECORDS SUMMARY | 2019-04-11 19:30 | XMS REPORT ---
Author Author Sommer Wheatley [facility] eClinicalWorks Address Unknown Phone Unavailable Care Team Providers Care Vp Biology Name Role Phone Sommer Wheatley CP Unavailable Allergies, Adverse Reactions, Alerts Substance Reaction Event Type Codeine Sulfate axiety Drug Allergy AMARA inhibitors cough Non Drug Allergy Problems Problem Type Condition Code Onset Dates Condition Status Problem Encounter for other screening for malignant neoplasm of breast Z12.39 Active Problem At high risk for breast cancer Z91.89 Active Problem HLD (hyperlipidemia) E78.5 Active Problem Fatty liver K76.0 Active Problem Prediabetes R73.09 Active Problem Mixed hyperlipidemia E78.2 Active Problem Type 2 diabetes mellitus without complication, without long-term current use of insulin E11.9 Active Problem Paresthesia of both hands R20.2 Active Problem BMI 37.0-37.9, adult Z68.37 Active Problem Surgical menopause E89.40 Active Assessment Mixed hyperlipidemia E78.2 Active Problem Obesity E66.9 Active Problem Hypothyroidism E03.9 Active Assessment Prediabetes R73.03 Active Problem HTN (hypertension) I10 Active Medications Medication Code System Code Instructions Start Date End Date Status Dosage Aspir-81 [facility] 56252699805 81 MG Orally Once a day Active 1 tablet OneTouch Ultra Test [facility] 33919526605 - In Vitro use bid Active as directed OneTouch Lancets [facility] 60907722397 SQ once a day DX: November 26, 2016 Active as directed OneTouch Test NDC 0 In Vitro once a day DX: November 26, 2016 Active as directed OneTouch Ultra System [facility] 50856382119 w/Device in vitro use qd dx: December 01, 2016 Active as directed Lisinopril [facility] 56673008787 5 MG Orally Once a day Active 1 tablet Atorvastatin Calcium [facility] 15417206610 20 mg by mouth daily Active 1 tablet Centrum Adults [facility] 65828266382 - Orally Active not defined Caltrate 600+D [facility] 08471529828 600-400 MG-UNIT Orally Once a day Active 1 tablet with food Coreg CR [facility] 51351267728 20 mg Orally Once a day Active 1 capsule Metformin HCl [facility] 31970822037 500 mg Orally once a day Active 1 tablet Vital Signs Date/Time: May 19, 2018 BMI 36.39 Index Weight 199 lbs Height 62 in Cardiac Monitoring Heart Rate 76 /min Blood Pressure Diastolic 82 mm Hg Blood Pressure Systolic 144 mm Hg Results No Known Results Summary Purpose eClinicalWorks Submission
--- OUTSIDE RECORDS SUMMARY | 2019-04-11 19:30 | XMS REPORT ---
Author Author Sommer Wheatley [facility] eClinicalWorks Address Unknown Phone Unavailable Care Team Providers Care Snuff Packing Machine Operator Name Role Phone Sommer Wheatley CP Unavailable [...] R20.2 Active Problem Tension headache G44.209 Active Assessment Tension headache G44.209 Active Problem Mixed hyperlipidemia E78.2 Active Problem Sciatica of right side M54.31 Active Problem BMI 37.0-37.9, adult Z68.37 Active Problem Surgical menopause E89.40 Active Problem Fatty liver K76.0 Active Problem Prediabetes R73.09 Active Assessment Prediabetes R73.09 Active Assessment HTN (hypertension) I10 Active Assessment Hypothyroidism E03.9 Active Assessment HLD (hyperlipidemia) E78.5 Active Problem Hypothyroidism E03.9 Active Problem HTN (hypertension) I10 Active Problem HLD (hyperlipidemia) E78.5 Active Problem Obesity E66.9 Active Problem Encounter for other screening for malignant neoplasm of breast Z12.39 Active Medications Medication Code System Code Instructions Start Date End Date Status Dosage OneTouch Test NDC 0 In Vitro once a day DX: E11.9 November 26, 2016 Active as directed Coreg CR [facility] 15003977716 20 MG Active TAKE ONE CAPSULE BY MOUTH ONCE A DAY WITH FOOD Aspir-81 ND 21086030994 81 MG Orally Once a day Active 1 tablet OneTouch Ultra Test [facility] 06086501787 - In Vitro use bid Active as directed Caltrate 600+D [facility] 18904731938 600-400 MG-UNIT Orally Once a day Active 1 tablet with food Centrum Adults [facility] 87782505280 - Orally Active not defined Metformin HCl ND 16862403969 500 mg Orally once a day Active 1 tablet OneTouch Lancets [facility] 30569333847 SQ once a day DX: E11.November 26, 2016 Active as directed AlterPoint System ND 35297208222 w/Device in vitro use qd dx: E11.December 01, 2016 Active as directed Atorvastatin Calcium [facility] 09558547453 20 mg by mouth daily Active 1 tablet Vital Signs Date/Time: November 03, 2018 BMI 35.30 Index Weight 193 lbs Height 62 in Cardiac Monitoring Heart Rate 65 /min Blood Pressure Diastolic 66 mm Hg Blood Pressure Systolic 120 mm Hg Results No Known Results Summary Purpose eClinicalWorks Submission
--- OUTSIDE RECORDS SUMMARY | 2019-04-11 19:30 | XMS REPORT ---
Author Author Sommer Wheatley [facility] eClinicalWorks Address Unknown Phone Unavailable Care Team Providers Care Manager Security Name Role Phone Sommer Wheatley CP Unavailable Allergies, Adverse Reactions, Alerts Substance Reaction Event Type Codeine Sulfate axiety Drug Allergy Encounters Encounter Location Date Lab results [facility] January 21, 2016 Problems Problem Type Condition ICD-9 Code Onset Dates Condition Status Assessment HLD (hyperlipidemia) E78.5 Active Assessment Prediabetes R73.09 Active Assessment HTN (hypertension) I10 Active Problem Prediabetes R73.09 Active Problem Hypothyroidism E03.9 Active Problem HTN (hypertension) I10 Active Problem At high risk for breast cancer Z91.89 Active Problem Obesity E66.9 Active Problem HLD (hyperlipidemia) E78.5 Active Problem Encounter for other screening for malignant neoplasm of breast Z12.39 Active Medications Medication Code System Code Instructions Start Date End Date Status Dosage Fish Oil [facility] [address]-22 500 mg Orally ance a day Active 1 capsule [facility]ir[facility] [address]-72 81 MG Orally Once a day Active 1 tablet Fiber [facility] [address]-37 Orally Active Unknown Invokana [facility] [address]-08 300 MG Orally Once a day Active 1 tablet Atorvastatin Calcium [facility] [address]-36 20 MG Orally Once a day Active 1 tablet Coreg CR [facility] [address]-74 20 MG Orally Once a day Active 1 capsule with food Caltrate 600+D [facility] [address]-31 600-400 MG-UNIT Orally Once a day Active 1 tablet with food Social History Social History Element Qualifiers Date Reported Ethnicity . Status , Is gibraltarian your primary language? Yes January 21, 2016 children . 2 January 21, 2016 Tobacco Use: . Are you a: never smoker January 21, 2016 Marital Status: . [place] January 21, 2016 Do you drink alcohol? . Status: Yes, Type: Wine, How often? 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
--- OUTSIDE RECORDS SUMMARY | 2019-04-11 19:30 | XMS REPORT ---
Author Author Sommer Wheatley [facility] eClinicalWorks Address Unknown Phone Unavailable Care Team Providers Care Migratory Farm Hand Name Role Phone Sommer Wheatley CP [...] Active Problem Surgical menopause E89.40 Active Assessment Cervical paraspinal muscle spasm M62.838 Active Problem Obesity E66.9 Active Problem Hypothyroidism E03.9 Active Assessment Wheezing R06.2 Active Problem HTN (hypertension) I10 Active Medications Medication Code System Code Instructions Start Date End Date Status Dosage OneTouch Lancets [facility] 82755537976 SQ once a day DX: E11.November 26, 2016 Active as directed OneTouch Ultra Test ND 88004693906 - In Vitro use bid Active as directed Meloxicam ND 94894687795 7.5 MG Orally Once a day Jun 02, 2018 Jul 02, 2018 Active -2 tablets OneTouch Ultra System [facility] 65018703555 w/Device in vitro use qd dx: E11.9 December 01, 2016 Active as directed Metformin HCl ND 79002521276 500 mg Orally once a day Active 1 tablet Lisinopril ND 54236490481 5 MG Orally Once a day Active 1 tablet Aspir-81 ND 62856077740 81 MG Orally Once a day Active 1 tablet Caltrate 600+D ND 09478270383 600-400 MG-UNIT Orally Once a day Active 1 tablet with food Flexeril NDC 0 10 mg Orally three times a day (tid) as needed (prn) Jun 02, 2018 Jul 02, 2018 Active 1 tablet as needed Atorvastatin Calcium ND 07357470402 20 mg by mouth daily Active 1 tablet Coreg CR NDC 15465237874 20 mg Orally Once a day Active 1 capsule OneTouch Test NDC 0 In Vitro once a day DX: E11.9 November 26, 2016 Active as directed Centrum Adults [facility] 20184910146 - Orally Active not defined Vital Signs Date/Time: Jun 02, 2018 BMI 36.03 Index Weight 197 lbs Height 62 in Cardiac Monitoring Heart Rate 68 /min Blood Pressure Diastolic 80 mm Hg Blood Pressure Systolic 124 mm Hg Results Name Result Date Reference Range Unit Abnormality Flag Chest 2 views- Xray Summary Purpose eClinicalWorks Submission
--- OUTSIDE RECORDS SUMMARY | 2019-04-11 19:30 | XMS REPORT ---
Author Author Sommer Wheatley [facility] eClinicalWorks Address Unknown Phone Unavailable Care Team Providers Care Typing Office Worker Name Role Phone Sommer Wheatley CP Unavailable Allergies, Adverse Reactions, Alerts Substance Reaction Event Type Codeine Sulfate axiety Drug Allergy AMARA inhibitors cough Non Drug Allergy Problems Problem Type Condition Code Onset Dates Condition Status Problem Hypothyroidism E03.9 Active Problem Encounter for other screening for malignant neoplasm of breast Z12.39 Active Problem HTN (hypertension) I10 Active Problem Prediabetes R73.09 Active Assessment At high risk for breast cancer Z91.89 Active Problem BMI 37.0-37.9, adult Z68.37 Active Problem Fatty liver K76.0 Active Problem Paresthesia of both hands R20.2 Active Problem At high risk for breast cancer Z91.89 Active Problem Surgical menopause E89.40 Active Problem Type 2 diabetes mellitus without complication, without long-term current use of insulin E11.9 Active Assessment Type 2 diabetes mellitus without complication, without long-term current use of insulin E11.9 Active Assessment Encounter for other screening for malignant neoplasm of breast Z12.39 Active Assessment Paresthesia of both hands R20.2 Active Assessment Fatty liver K76.0 Active Assessment Encounter for screening mammogram for malignant neoplasm of breast Z12.31 Active Assessment Encntr for general adult medical exam w/o abnormal findings Z00.00 Active Assessment HTN (hypertension) I10 Active Problem Obesity E66.9 Active Assessment HLD (hyperlipidemia) E78.5 Active Problem HLD (hyperlipidemia) E78.5 Active Medications Medication Code System Code Instructions Start Date End Date Status Dosage Centrum Adults [facility] 66770479157 - Orally Active not defined OneTouch Ultra Test [facility] 64705434784 - In Vitro use bid Active as directed OneTouch Test NDC 0 In Vitro once a day DX: E11.9 November 26, 2016 Active as directed Metformin HCl [facility] 62771416933 500 mg Orally once a day Active 1 tablet Lisinopril [facility] 04302506580 5 MG Orally Once a day Active 1 tablet Aspir-81 ND 76878102255 81 MG Orally Once a day Active 1 tablet OneTouch Lancets [facility] 17866614274 SQ once a day DX: E11.November 26, 2016 Active as directed Caltrate 600+D [facility] 30730174803 600-400 MG-UNIT Orally Once a day Active 1 tablet with food OneTouch Ultra System [facility] 83644291693 w/Device in vitro use qd dx: E11.December 01, 2016 Active as directed Atorvastatin Calcium [facility] 75456826047 20 mg by mouth daily Active 1 tablet Coreg CR [facility] 52796547293 20 mg Orally Once a day Active 1 capsule Vital Signs Date/Time: May 05, 2018 BMI 36.21 Index Weight 198 lbs Height 62 in Cardiac Monitoring Heart Rate 74 /min Blood Pressure Diastolic 76 mm Hg Blood Pressure Systolic 130 mm Hg Results Name Result Date Reference Range Unit Abnormality Flag URINALYSIS, COMPLETE ----LEUKOCYTE ESTERASE NEGATIVE 20180505 NEGATIVE N ----NITRITE NEGATIVE 20180505 NEGATIVE N ----SPECIFIC GRAVITY 1.023 20180505 1.001-1.035 N ----COMMENTS FEW MUCOUS THREADS 20180505 ----PH 5.5 20180505 5.0-8.0 N ----HYALINE CAST NONE SEEN 20180505 NONE SEEN /LPF N ----GLUCOSE NEGATIVE 20180505 NEGATIVE N ----CALCIUM OXALATE CRYSTALS MODERATE 20180505 NONE OR FEW /HPF A ----BILIRUBIN NEGATIVE 20180505 NEGATIVE N ----BACTERIA FEW [id number] NONE SEEN /HPF A ----KETONES NEGATIVE 20180505 NEGATIVE N ----SQUAMOUS EPITHELIAL CELLS 0-5 73040295 < OR=5 /HPF ----OCCULT BLOOD NEGATIVE 73382624 NEGATIVE N ----COLOR YELLOW 20180505 YELLOW N ----PROTEIN NEGATIVE 21572579 NEGATIVE N ----RBC 0-2 69636716 < OR=2 /HPF N ----APPEARANCE CLEAR 20180505 CLEAR N ----WBC 0-5 20989367 < OR=5 /HPF N CBC (INCLUDES DIFF/PLT) ----ABSOLUTE EOSINOPHILS 190 20180505 15-500 cells/uL N ----MCV 86.8 20180505 80.0-100.0 fL N ----HEMATOCRIT 39.3 70690265 35.0-45.0 % N ----ABSOLUTE MONOCYTES 371 33700541 200-950 cells/uL N ----MCHC 32.6 06987554 32.0-36.0 g/dL N ----ABSOLUTE LYMPHOCYTES 2252 78750838 850-3900 cells/uL N ----MCH 28.3 09971991 27.0-33.0 pg N ----ABSOLUTE NEUTROPHILS 5048 70752871 7109-6588 cells/uL N ----MONOCYTES 4.7 59566936 % N ----WHITE BLOOD CELL COUNT 7.9 12888870 3.8-10.8 Thousand/uL N ----LYMPHOCYTES 28.5 15279125 % N ----NEUTROPHILS 63.9 11168704 % N ----HEMOGLOBIN 12.8 66988487 11.7-15.5 g/dL N ----ABSOLUTE BASOPHILS 40 82013745 0-200 cells/uL N ----RED BLOOD CELL COUNT 4.53 47040803 3.80-5.10 Million/uL N ----BASOPHILS 0.5 18461850 % N ----MPV 10.1 85214010 7.5-12.5 fL N ----EOSINOPHILS 2.4 90839480 % N ----RDW 13.8 80360065 11.0-15.0 % N ----PLATELET COUNT 342 65965217 140-400 Thousand/uL N COMPREHENSIVE METABOLIC PANEL ----ALBUMIN/GLOBULIN RATIO 1.3 28371536 1.0-2.5 (calc) N ----GLOBULIN 3.2 51953696 1.9-3.7 g/dL (calc) N ----ALKALINE PHOSPHATASE 75 90130045 33-115 U/L N ----BILIRUBIN, TOTAL 0.6 40056308 0.2-1.2 mg/dL N ----CHLORIDE 103 16797015 98-110 mmol/L N ----ALT 31 40471865 6-29 U/L H ----POTASSIUM 4.8 50559640 3.5-5.3 mmol/L N ----AST 26 96880928 10-35 U/L N ----SODIUM 140 80365912 135-146 mmol/L N ----BUN/CREATININE RATIO NOT APPLICABLE 20180505 6-22 (calc) ----eGFR 124 20180505 > OR=60 mL/min/1.73m2 N ----CALCIUM 9.4 20180505 8.6-10.2 mg/dL N ----CARBON DIOXIDE 30 20180505 20-32 mmol/L N ----ALBUMIN 4.3 24677732 3.6-5.1 g/dL N ----PROTEIN, TOTAL 7.5 67023851 6.1-8.1 g/dL N ----GLUCOSE 83 20180505 65-99 mg/dL N ----UREA NITROGEN (BUN) 13 20180505 7-25 mg/dL N ----CREATININE 0.61 20180505 0.50-1.10 mg/dL N ----eGFR NON-AFR. BULGARIAN 107 20180505 > OR=60 mL/min/1.73m2 N HEMOGLOBIN A1c ----HEMOGLOBIN A1c 5.9 27745079 <5.7 % of total Hgb H LIPID PANEL ----NON HDL CHOLESTEROL 137 92525552 <130 mg/dL (calc) H ----CHOL/HDLC RATIO 4.0 41595770 <5.0 (calc) N ----LDL-CHOLESTEROL 114 20180505 mg/dL (calc) H ----TRIGLYCERIDES 120 20180505 <150 mg/dL N ----HDL CHOLESTEROL 46 08472244 >50 mg/dL L ----CHOLESTEROL, TOTAL 183 73578018 <200 mg/dL N TSH ----TSH 2.30 20151952 mIU/L N Summary Purpose eClinicalWorks Submission
--- OUTSIDE RECORDS SUMMARY | 2019-04-11 19:30 | XMS REPORT ---
Author Author Sommer Wheatley [facility] eClinicalWorks Address Unknown Phone Unavailable Care Team Providers Care Rent And Miscellaneous Remittance Clerk Name Role Phone Sommer Wheatley CP Unavailable Allergies, Adverse Reactions, Alerts Substance Reaction Event Type Codeine Sulfate axiety Drug Allergy Encounters Encounter Location Date Lab results [facility] January 21, 2016 3 MONTH FOLLOW UP [facility] Apr 23, 2016 Problems Problem Type Condition ICD-9 Code Onset Dates Condition Status Assessment HLD (hyperlipidemia) E78.5 Active Assessment HTN (hypertension) I10 Active Assessment Hypothyroidism E03.9 Active Assessment Prediabetes R73.09 Active Problem Prediabetes R73.09 Active Problem Hypothyroidism E03.9 Active Problem HTN (hypertension) I10 Active Problem At high risk for breast cancer Z91.89 Active Problem Obesity E66.9 Active Problem HLD (hyperlipidemia) E78.5 Active Problem Encounter for other screening for malignant neoplasm of breast Z12.39 Active Medications Medication Code System Code Instructions Start Date End Date Status Dosage Aspir-81 [facility] [address]-03 81 MG Orally Once a day Active 1 tablet [facility] [address]-16 300 MG Orally Once a day Inactive 1 tablet Fiber [facility] [address]-06 Orally Active Unknown Atorvastatin Calcium [facility] [address]-06 20 MG Orally Once a day Active 1 tablet Coreg CR [facility] [address]-84 20 MG Orally Once a day Active 1 capsule with food Caltrate 600+D [facility] [address]-40 600-400 MG-UNIT Orally Once a day Active 1 tablet with food Fish Oil [facility] [address]-15 500 mg Orally ance a day Active 1 capsule Social History Social History Element Qualifiers Date Reported Ethnicity . Status , Is georgian your primary language? Yes Apr 23, 2016 children . 2 Apr 23, 2016 Tobacco Use: . Are you a: never smoker Apr 23, 2016 Marital Status: . [place] Ellison Apr 23, 2016 Do you drink alcohol? . Status: Yes, Type: Wine, How often? 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
--- OUTSIDE RECORDS SUMMARY | 2019-04-11 19:31 | XMS REPORT ---
Author Author Libertad Martinez Organization eClinicalWorks Address Unknown Phone Unavailable Care Team Providers Care Extended Insurance Clerk Name Role Phone Libertad Martinez CP Unavailable Allergies No Known Allergies Problems Problem Type Condition Code Onset Dates Condition Status Assessment Type 2 diabetes mellitus without complication, without long-term current use of insulin E11.9 Active Problem At high risk for breast cancer Z91.89 Active Problem Obesity E66.9 Active Problem Paresthesia of both hands R20.2 Active Problem HTN (hypertension) I10 Active Problem Type 2 diabetes mellitus without complication, without long-term current use of insulin E11.9 Active Problem HLD (hyperlipidemia) E78.5 Active Problem Encounter for other screening for malignant neoplasm of breast Z12.39 Active Problem Prediabetes R73.09 Active Problem Hypothyroidism E03.9 Active Medications Medication Code System Code Instructions Start Date End Date Status Dosage OneTouch Ultra System [facility] [address]-54 w/Device in vitro use qd dx: December 01, 2016 Active as directed One Touch/One Touch II Starter NDC 0 In Vitro as directed DX: November 26, 2016 Inactive as directed Results No Known Results Summary Purpose eClinicalWorks Submission
--- OUTSIDE RECORDS SUMMARY | 2019-04-11 19:31 | XMS REPORT ---
Author Author Libertad Martinez [facility] eClinicalWorks Address Unknown Phone Unavailable Care Team Providers Care Marine Structural Designer Name Role Phone Libertad Martinez Unavailable Allergies, Adverse Reactions, Alerts Substance Reaction Event Type Codeine Sulfate axiety Drug Allergy Problems Problem Type Condition Code Onset Dates Condition Status Assessment HTN (hypertension) I10 Active Problem At high risk for breast cancer Z91.89 Active Problem Obesity E66.9 Active Assessment Type 2 diabetes mellitus without [...] Date End Date Status Dosage Metformin HCl [facility] [address]-87 500 MG Orally once a day November 26, 2016 Active 1 tablet with meals Caltrate 600+D [facility] [address]-88 600-400 MG-UNIT Orally Once a day Active 1 tablet with food OneTouch Test NDC 0 In Vitro once a day DX: E11.November 26, 2016 Active as directed Metamucil Fiber Singles NDC 0 58.6 % Orally Three times a day Active 1 packet with 8 [place] [address]-24 40 MG Orally Once a day November 26, 2016 Active 1 capsule with food Fiber [facility] [address]-13 [place] [address]-72 500 mg Orally ance a day [place] [address]-97 20 MG Orally Once a day Inactive 1 [place] [address]-78 SQ once a day DX: E11November 26, 2016 Active as directed One Touch/One Touch II Starter [facility] 0 In Vitro as directed DX: E11.9 November 26, 2016 Active as directed Aspir-81 [facility] [address]-58 81 MG Orally Once a day Active 1 tablet Atorvastatin Calcium [facility] [address]-80 20 MG Orally Once a day Active 1 tablet Vital Signs Date/Time: November 26, 2016 BMI 37.13 Index Weight 203 lbs Height 62 in Cardiac Monitoring Heart Rate 78 /min Blood Pressure Diastolic 92 mm Hg Blood Pressure Systolic 138 mm Hg Results No Known Results Summary Purpose eClinicalWorks Submission
--- OUTSIDE RECORDS SUMMARY | 2019-04-11 19:31 | XMS REPORT ---
Author Author Sommer Wheatley Organization eClinicalWorks Address Unknown Phone Unavailable Care Team Providers Care Digital Media Coordinator Name Role Phone Sommer Wheatley CP Unavailable Allergies, Adverse Reactions, Alerts Substance Reaction Event Type Codeine Sulfate axiety Drug Allergy Problems Problem Type Condition Code Onset Dates Condition Status Assessment Hypothyroidism E03.9 Active Problem Obesity E66.9 Active Assessment HLD (hyperlipidemia) E78.5 Active Assessment Prediabetes R73.09 Active Assessment HTN (hypertension) I10 Active Problem HTN (hypertension) I10 Active Problem Prediabetes R73.09 Active Problem Paresthesia of both hands R20.2 Active Problem Encounter for other screening for malignant neoplasm of breast Z12.39 Active Problem At high risk for breast cancer Z91.89 Active Problem Hypothyroidism E03.9 Active Problem HLD (hyperlipidemia) E78.5 Active Medications Medication Code System Code Instructions Start Date End Date Status Dosage Fiber [facility] [address]-27 Orally Active not defined Coreg CR [facility] [address]-83 20 MG Orally Once a day Active 1 capsule with food Aspir-81 [facility] [address]-93 81 MG Orally Once a day Active 1 tablet Fish Oil [facility] [address]-92 500 mg Orally ance a day Active 1 capsule Atorvastatin Calcium [facility] [address]-62 20 MG Orally Once a day Active 1 tablet Caltrate 600+D [facility] [address]-82 600-400 MG-UNIT Orally Once a day Active 1 tablet with food Vital Signs Date/Time: November 19, 2016 BMI 36.58 Index Weight 200 lbs Height 62 in Cardiac Monitoring Heart Rate 71 /min Blood Pressure Diastolic 98 mm Hg Blood Pressure Systolic 162 mm Hg Results No Known Results Summary Purpose eClinicalWorks Submission
--- OUTSIDE RECORDS SUMMARY | 2019-04-11 19:31 | XMS REPORT ---
Author Author Sommer Wheatley Organization eClinicalWorks Address Unknown Phone Unavailable Care Team Providers Care Director Of Managed Services Name Role Phone oSmmer Wheatley CP Unavailable Allergies No Known Allergies [...] Instructions Start Date End Date Status Dosage AIRTAMEToJambo Ultra System [facility] [address]-94 w/Device in vitro use qd dx: E11.9 December 01, 2016 Active as directed Results No Known Results Summary Purpose eClinicalWorks Submission
[2019-04-11 19:51] LABS: BASOPHILS % 0.3 % (0.0-1.0); EOSINOPHILS # (AUTO) 0.3 (0.0-0.4); EOSINOPHILS % 2.3 % (0.0-6.0); HEMATOCRIT 39.3 % (34.2-44.1); HEMOGLOBIN 12.6 g/dL (12.0-16.0); LYMPHOCYTES # (AUTO) 2.9 (1.0-3.2); LYMPHOCYTES % 27.5 % (18.0-39.1); MEAN CORPUSCULAR HEMOGLOBIN 28.1 pg (28-32); MEAN CORPUSCULAR HGB CONC 32.1 g/dL (31-35); MEAN CORPUSCULAR VOLUME 87.5 fL (81-99); MONOCYTES # (AUTO) 0.4 (0.2-0.8); MONOCYTES % 3.8 % (4.4-11.3); NEUTROPHILS % 65.8 % (38.7-80.0); PLATELET COUNT 336 x10e3/uL (140-360); RED BLOOD COUNT 4.49 x10e6/uL (3.6-5.1); RED CELL DISTRIBUTION WIDTH 14.6 % (11.7-14.4)
[2019-04-11 20:04] LABS: ALANINE AMINOTRANSFERASE 27 IU/L (0-55); ALBUMIN 3.8 g/dL (3.5-5.0); ALKALINE PHOSPHATASE 84 IU/L (40-150); ANION GAP 12.7 mmol/L (8-16); BLOOD UREA NITROGEN 13 mg/dL (7-26); BUN/CREATININE RATIO 17 (6-25); CALCIUM 9.6 mg/dL (8.4-10.2); CARBON DIOXIDE 30 mmol/L (22-29); CHLORIDE 99 mmol/L (98-107); CREATINE KINASE 55 IU/L (29-168); CREATININE, SERUM 0.76 mg/dL (0.57-1.11); EST GLOMERULAR FILTRATION RATE > 60 ML/MIN (60-); GLUCOSE 137 mg/dL (74-118); POTASSIUM 3.7 mmol/L (3.5-5.1); SODIUM 138 mmol/L (136-145)
[2019-04-11 21:40] VITALS: BP 131/76
== END 2019-04-11 21:52 | disposition home or self-care (01) ==
LOC: ER 19:25
DX: I16.0 Hypertensive urgency (principal); R51 Headache; E11.9 Type 2 diabetes mellitus without complications; E78.5 Hyperlipidemia, unspecified
CPT/HCPCS: 36415; 80053; 82550; 82553; 84484; 85025; 93005; 99284